=== PATIENT | male | born 1975 | race Two or more races ===

== ENCOUNTER 2019-05-20 05:13 | Emergency (ER) | payer OTHER ==
[~2019-05-20] VITALS: Ht 167.6 cm; Wt 74.8 kg
[2019-05-20 05:19] VITALS: Ht 167.6 cm; Wt 74.8 kg
[2019-05-20 08:15] VITALS: BP 108/54
== END 2019-05-20 08:15 | disposition home or self-care (01) ==
LOC: ED 05:13
DX: S20.219A Contusion of unspecified front wall of thorax, initial encounter (principal); S09.8XXA Other specified injuries of head, initial encounter; V49.3XXA Car occupant (driver) (passenger) injured in unspecified nontraffic accident, initial encounter; Y93.I9 Activity, other involving external motion; Y92.413 State road as the place of occurrence of the external cause; Y99.8 Other external cause status
CPT/HCPCS: J2270; J2405; Q0092